=== PATIENT | female | born 1985 | race Caucasian/White ===

== ENCOUNTER 2016-04-21 05:14 | Emergency (ER) | payer OTHER ==
[~2016-04-21] VITALS: Wt 77.0 kg
[~2016-04-21 05:14] MED LIST: AZIT250T94 PO; LORA10TA3 PO; NITR-58 PO; OMEP20CA16 PO
[2016-04-21] MEDS ORDERED: AMO500 PO (07:11)
--- NOTE | 2016-04-21 07:16 | ERD ---
ER Documentation Chief Complaint Date/Time DATE: 04/21/16 TIME: 07:11 Chief Complaint bilateral ear pain/sore throat 4 days HPI Patient is a 31-year-old female with past medical history of asthma who presents to the emergency department with bilateral ear pain and throat pain 4 days. Patient states that initially she had right ear pain but it has now progressed into her left ear. Patient states that her left ear pain is throbbing and sharp in nature. Patient states her current pain level is a 6 out of 10. Patient has not tried any medication. Patient also reports a dry cough which is now improved. Patient states that her throat pain is worse when swallowing however she denies any drooling, trismus, hyperextension of her neck. She denies any fever, chills, abdominal pain, nausea, vomiting, shortness of breath or chest pain. Patient denies any wheezing. + sick contacts , children. No recent travel. ROS All systems reviewed and are negative except as per history of present illness. Medications Home Meds Active Scripts Amoxicillin* (Amoxicillin*) 500 Mg Cap, 500 MG PO TID for 7 Days, CAP Prov:MONY GERMAINC 04/21/16 Nitrofurantoin Monohyd Macrocr* (Macrobid*) 100 Mg Capsr, 100 MG PO BID for 7 Days, CAP Prov:KP IBARRA NP 07/17/15 Nitrofurantoin Monohyd Macrocr* (Macrobid*) 100 Mg Capsr, 100 MG PO BID, #14 CAP 0 Refills Prov:ALEXANDRU WATTERS PA-C 03/02/15 Azithromycin* (Zithromax*) 250 Mg Tablet, 250 MG PO .KanikaPACK DIRECTED, #6 TAB TAKE 500 MG (2 TABS) THE FIRST DAY THEN 250 MG (1 TAB) DAYS 2-5 Prov:BETY MARTINEZ PA-C 10/04/14 Reported Medications Loratadine* (Loratadine*) 10 Mg Tablet, 10 MG PO DAILY 08/03/13 Omeprazole* (Omeprazole*) 20 Mg Capsule.dr, 20 MG PO DAILY 08/03/13 Allergies Allergies: Coded Allergies: No Known Allergy (Unverified , 07/17/15) PMhx/Soc History of Surgery: Yes (cholecystectomy) Anesthesia Reaction: No Hx Neurological Disorder: No Hx Respiratory Disorders: Yes (ASTHMA) Hx Cardiac Disorders: No Hx Psychiatric Problems: No Hx Miscellaneous Medical Probl: Yes (GI: ULCER) Hx Alcohol Use: Yes (occassional) Hx Substance Use: No Hx Tobacco Use: No FmHx Family History: No diabetes Physical Exam Vitals Vital Signs Date Time Temp Pulse Resp B/P Pulse Ox O2 Delivery O2 Flow Rate FiO2 04/21/16 05:32 98.2 79 18 137/74 100 Physical Exam GENERAL: Well-developed, well-nourished female. Appears in no acute distress. HEAD: Normocephalic, atraumatic. No deformities or ecchymosis. EYE: Pupils equal, round, and reactive to light. EOMs intact. No conjunctival erythema. No scleral icterus. No eye discharge. ENT: External ear without any masses or tenderness. Auditory canals clear bilaterally. Left TM appears erythematous and bulging. Right TM appears nonerythematous and nonbulging. Nasal mucosa pink with no discharge. Oropharynx is pink without any tonsillar erythema or exudates. Mild tonsillar swelling noted bilaterally. No uvula deviation. No kissing tonsils. No Bilateral mastoid tenderness. NECK: Supple. No lymphadenopathy or thyromegaly. No meningismus. No JVD. No bruits. Trachea midline. LUNG: Clear to auscultation bilaterally. No rhonchi, wheezing, rales or coarse breath sounds. HEART: Regular rate and rhythm. No murmurs, rubs or gallops. ABDOMEN: Soft, nontender, and nondistended. Positive bowel sounds in all four quadrants. No rebound tenderness, no guarding. (-) McBurney's point tenderness. No CVA tenderness. : deferred BACK: No midline tenderness. EXTREMITES: Equal pulses bilaterally. No peripheral clubbing, cyanosis or edema. No unilateral leg swelling. NEUROLOGIC: Alert and oriented to person, place and time. Moving all four extremities. 5/5 strength in all extremities. Normal speech. Steady gait. (-) Brudzinski sign- no flexion of the hips and knees noted with neck flexion. (-) Kernigs sign- patient able to extend knee to 180 degrees with hip flexion, no hamstring stiffness noted. SKIN: Normal color. Warm and dry. No rashes or lesions. Procedures/MDM MEDICAL DECISION MAKING: Physical 31-year-old female who presents with bilateral ear pain and throat pain 4 days. She states that her pain is primarily in the left ear currently. Vital signs were reviewed. Patient was afebrile. Patient was not hypoxic. Ear exam revealed left TM erythema and bulging. Right TM appears normal. No bilateral mastoid tenderness was elicited. Given these findings, the patients presentation is most consistent with acute otitis media of left ear. I have a much lower clinical suspicion for otitis externa, acute otitis media, tympanic membrane perforation, mastoiditis, otic barotrauma, TMJ dysfunction, pharyngitis , peritonsillar abscess, retropharyngeal abscess, meningitis, sepsis, pneumonia. PRESCRIPTIONS: Amoxicillin Take Tylenol or Motrin for any pain or fevers. DISCHARGE: At this time, patient is stable for discharge and outpatient management. I have instructed the patient to follow-up with his/her primary care physician in 1-2 days. I have discussed with the patient the possibility of needing to see a specialist for further workup and diagnostic studies if the pain persists. I have instructed the patient to promptly return to the ER at any time for any new or worsening symptoms including increased pain, fever, swelling, discharge or hearing loss. The patient and/or family expressed understanding of and agreement with this plan. All questions were answered. Home care instructions were provided. Departure Diagnosis: Primary Impression: Acute otitis media Otitis media type: unspecified Laterality: unspecified laterality Qualified Code: H66.90 - Acute otitis media, unspecified laterality, unspecified otitis media type Condition: Stable Patient Instructions: Otitis Media, Abx Tx (Adult) Additional Instructions: Call your primary care doctor TOMORROW for an appointment during the next 1-2 days.See the doctor sooner or return here if your condition worsens before your appointment time. Take Tylenol or Motrin for pain/fevers. MONY GERMAIN PA-C Apr 21, 2016 07:15
== END 2016-04-21 07:19 | disposition home or self-care (01) ==
LOC: FTE 05:14
DX: H66.92 Otitis media, unspecified, left ear (principal); J45.909 Unspecified asthma, uncomplicated
CPT/HCPCS: 99283

== ENCOUNTER 2016-12-09 22:52 | Emergency (ER) | payer OTHER ==
[~2016-12-09] VITALS: Ht 152.4 cm; Wt 100.0 kg
[~2016-12-09 22:52] MED LIST changes: +AMO500 PO
[2016-12-09 22:56] VITALS: Ht 152.4 cm; Wt 100.0 kg
--- NOTE | 2016-12-10 01:15 | ERD ---
ER Documentation Chief Complaint Date/Time DATE: 12/10/16 TIME: 01:13 Chief Complaint 5 wks , vag bleeding . pelvic pain,vomiting HPI 31-year-old female presents in emergency department for complaints of pelvic pain and vomiting vaginal bleeding that started 2 days ago. Patient tested positive for at home, patient has not seen primary care doctor, patient has an IUD in place. Patient's complaining pelvic pain cramping pain, 6/ 10 scale, not better or worse with anything. Patient denies any fever or chills. States that she may be 5 weeks preg ROS All systems reviewed and are negative except as per history of present illness. Medications Home Meds Active Scripts Amoxicillin* (Amoxicillin*) 500 Mg Cap, 500 MG PO TID for 7 Days, CAP Prov:MONY GERMAIN PA-C 04/21/16 Nitrofurantoin Monohyd Macrocr* (Macrobid*) 100 Mg Capsr, 100 MG PO BID for 7 Days, CAP Prov:KP IBARRA NP 07/17/15 Nitrofurantoin Monohyd Macrocr* (Macrobid*) 100 Mg Capsr, 100 MG PO BID, #14 CAP 0 Refills Prov:ALEXANDRU WATTERS PA-C 03/02/15 Azithromycin* (Zithromax*) 250 Mg Tablet, 250 MG PO .ZPACK DIRECTED, #6 TAB TAKE 500 MG (2 TABS) THE FIRST DAY THEN 250 MG (1 TAB) DAYS 2-5 Prov:BETY MARTINEZ PA-C 10/04/14 Reported Medications Loratadine* (Loratadine*) 10 Mg Tablet, 10 MG PO DAILY 08/03/13 Omeprazole* (Omeprazole*) 20 Mg Capsule.dr, 20 MG PO DAILY 08/03/13 Allergies Allergies: Coded Allergies: No Known Allergy (Unverified , 07/17/15) PMhx/Soc History of Surgery: Yes (cholecystectomy) Anesthesia Reaction: No Hx Neurological Disorder: No Hx Respiratory Disorders: Yes (ASTHMA) Hx Cardiac Disorders: No Hx Psychiatric Problems: No Hx Miscellaneous Medical Probl: Yes (GI: ULCER) Hx Alcohol Use: Yes (occassional) Hx Substance Use: No Hx Tobacco Use: No Smoking Status: Never smoker FmHx Family History: No coronary disease, No diabetes, No other Physical Exam Vitals Vital Signs Date Time Temp Pulse Resp B/P Pulse Ox O2 Delivery O2 Flow Rate FiO2 12/09/16 22:56 98.6 94 20 152/81 97 Physical Exam GENERAL: The patient is well developed and appropriate for usual state of health, in no apparent distress. CHEST: Clear to auscultation bilaterally. There are no rales, wheezes or rhonchi. HEART: Regular rate and rhythm. No murmurs, clicks, rubs or gallops. No S3 or S4. ABDOMEN: Soft, nontender and nondistended. Good bowel sounds. No rebound or guarding. No gross peritonitis. No gross organomegaly or masses. No Leon sign or McBurney point tenderness. BACK: No midline or flank tenderness. EXTREMITIES: Equal pulses bilaterally. There is no peripheral clubbing, cyanosis or edema. No focal swelling or erythema. Full range of motion. Grossly neurovascularly intact. NEURO: Alert and oriented. Cranial nerves 2-12 intact. Motor strength in all 4 extremities with 5/5 strength. Sensation grossly intact. Normal speech and gait. SKIN: There is no apparent rash or petechia. The skin is warm and dry. HEMATOLOGIC AND LYMPHATIC: There is no evidence of excessive bruising or lymphedema. No gross cervical, axillary, or inguinal lymphadenopathy. VAGINAL: Moderate amount of blood in the vaginal vault, cervical os is closed. No cervical motion tenderness or tenderness noted. Result Diagram: 12/10/1699 Results 24 hrs Laboratory Tests Test 12/10/16 01:00 12/10/16 02:14 White Blood Count 8.310^3/ul Red Blood Count 4.5910^6/ul Hemoglobin 13.7g/dl Hematocrit 40.6% Mean Corpuscular Volume 88.5fl Mean Corpuscular Hemoglobin 29.8pg Mean Corpuscular Hemoglobin Concent 33.7g/dl Red Cell Distribution Width 13.2% Platelet Count 63201^3/UL Mean Platelet Volume 9.5fl Neutrophils % 62.6% Lymphocytes % 27.6% Monocytes % 7.1% Eosinophils % 1.7% Basophils % 0.5% Nucleated Red Blood Cells % 0.0/100WBC Neutrophils # (Manual) 5.210^3/ul Lymphocytes # 2.310^3/ul Monocytes # 0.610^3/ul Eosinophils # 0.110^3/ul Basophils # 0.010^3/ul Nucleated Red Blood Cells # 0.010^3/ul Beta HCG, Quantitative < 2.4mIU/ml Urine Color KRISTAL Urine Clarity CLOUDY Urine pH 6.0 Urine Specific [place] 1.031 Urine Ketones NEGATIVEmg/dL Urine Nitrite NEGATIVEmg/dL Urine Bilirubin NEGATIVEmg/dL Urine Urobilinogen NEGATIVEmg/dL Urine Leukocyte Esterase NEGATIVELeu/ul Urine Microscopic RBC > 182/HPF Urine Microscopic WBC 10/HPF Urine Squamous Epithelial Cells MODERATE/HPF Urine Bacteria FEW/HPF Urine Mucus FEW/HPF Urine Hemoglobin 3+mg/dL Urine Glucose 1+mg/dL Urine Total Protein 2+mg/dl PROCEDURE: Obstetrical ultrasound. CLINICAL INDICATION: Vaginal bleeding. TECHNIQUE: Multiple sonographic images of the pelvis were obtained utilizing a transabdominal and endovaginal technique. The images were reviewed on a PACS workstation. COMPARISON: 07/17/2015. FINDINGS: The uterus is visualized and measures 8.5 x 4.0 x 5.5 cm. No abnormal uterine mass is identified. The endometrial echo complex is homogeneous and measures 5.4 mm. No intrauterine is identified. There is an intrauterine device in place. There is no evidence for free fluid. The right ovary has a normal echotexture and measures 2.9 x 2.2 x 2.2 cm. The left ovary has a normal echotexture and measures 3.4 x 1.8 x 2.4 cm. There is normal flow to both ovaries. No adnexal masses are identified. IMPRESSION: No intrauterine identified. Clinical beta-hCG correlation and follow- up is recommended. Intrauterine device in place. .Mika Booth MD, Date Time Electronically viewed and signed by .Mika Booth MD, MD on 12/10/2016 01:21 .T/ CC: RAYMON MORA NP Procedures/MDM Medical Decision Making: Patients vaginal bleeding is most likely dysfunctional uterine bleeding from IUD, IUD is in place, no . Patient does not show any evidence of hypovolemic shock. Patients hemoglobin and hematocrit is stable. There is low suspicion for ectopic . BRENDAN results show IUD in place, no . BetaHCG Quantitative is negative for . There is no signs of symptoms of dehydration. There is low suspicion for sepsis. Patient appears well and is hemodynamically stable. Disposition: Home. Condition: Stable Rx Ibuprofen Instructions: Patient is advised to do bed rest, avoid heavy lifting, and avoid having sex until cleared by OB doctor. Patient is advised to follow up with OB doctor or here at the ER in 48 hours for reevaluation of symptoms ultrasound. Patient is advised that is symptoms are worst, severe bleeding, dizziness, severe abdominal pain, fever, worst signs and symptoms to return to the emergency department immediately. Departure Diagnosis: Primary Impression: Vaginal bleeding Additional Impression: IUD (intrauterine device) in place Condition: Stable Patient Instructions: Control: IUD (Intrauterine Device), Dysfunctional Uterine Bleeding Additional Instructions: Instructions: Patient is advised to do bed rest, avoid heavy lifting, and avoid having sex until cleared by OB doctor. Patient is advised to follow up with OB doctor or here at the ER in 48 hours for reevaluation of symptoms, repeat beta HCG quantitative and ultrasound. Patient is advised that is symptoms are worst, severe bleeding, dizziness, severe abdominal pain, fever, worst signs and symptoms to return to the emergency department immediately. RAYMON MORA NP Dec 10, 2016 01:15
--- NOTE | 2016-12-10 01:21 | RADRPT ---
PROCEDURE: Obstetrical ultrasound. CLINICAL INDICATION: Vaginal bleeding. TECHNIQUE: Multiple sonographic images of the pelvis were obtained utilizing a transabdominal and endovaginal technique. The images were reviewed on a PACS workstation. COMPARISON: 07/17/2015. FINDINGS: The uterus is visualized and measures 8.5 x 4.0 x 5.5 cm. No abnormal uterine mass is identified. T he endometrial echo complex is homogeneous and measures 5.4 mm. No intrauterine is identif ied. There is an intrauterine device in place. There is no evidence for free fluid. The right ovary has a normal echotexture and measures 2.9 x 2. 2 x 2.2 cm. The left ovary has a normal echotexture and measures 3.4 x 1.8 x 2.4 cm. There is norm al flow to both ovaries. No adnexal masses are identified. IMPRESSION: No intrauterine identified. Clinical beta-hCG correlation and follow-up is recommended. Intrauterine device in place. .Mika Booth MD, Date Time Electronically viewed and signed by .Mika Booth MD, MD on 12/10/2016 01:21 .T/
[2016-12-10 01:22] LABS: BASOPHILS % 0.5 % (0.0-2.0); EOSINOPHILS # 0.1 10^3/ul (0.0-0.5); EOSINOPHILS % 1.7 % (0.0-7.0); HEMATOCRIT 40.6 % (37.0-47.0); HEMOGLOBIN 13.7 g/dl (12.0-16.0); LYMPHOCYTES # 2.3 10^3/ul (0.8-2.9); LYMPHOCYTES % 27.6 % (15.0-51.0); MEAN CORPUSCULAR HEMOGLOBIN 29.8 pg (29.0-33.0); MEAN CORPUSCULAR HGB CONC 33.7 g/dl (32.0-37.0); MEAN CORPUSCULAR VOLUME 88.5 fl (82.0-101.0); MEAN PLATELET VOLUME 9.5 fl (7.4-10.4); MONOCYTE # 0.6 10^3/ul (0.3-0.9); MONOCYTES % 7.1 % (0.0-11.0); NEUTROPHILS % 62.6 % (39.0-77.0); PLATELET COUNT 289 10^3/UL (140-415); RED BLOOD COUNT 4.59 10^6/ul (4.20-5.40); RED CELL DISTRIBUTION WIDTH 13.2 % (11.5-14.5); WHITE BLOOD COUNT 8.3 10^3/ul (4.8-10.8)
[2016-12-10 03:57] LABS: ADD UMIC YES; UR ASCORBIC ACID NEGATIVE (NEGATIVE); UR BACTERIA FEW /HPF (NONE SEEN); UR BILIRUBIN (Dip) NEGATIVE (NEGATIVE); UR BLOOD (Dip) 3+ mg/dL (NEGATIVE); UR CLARITY CLOUDY (CLEAR); UR COLOR AMBER (YELLOW); UR GLUCOSE (Dip) 1+ mg/dL (NEGATIVE); UR KETONES (Dip) NEGATIVE (NEGATIVE); UR LEUKOCYTE ESTERASE (Dip) NEGATIVE Leu/ul (NEGATIVE); UR MUCUS FEW /HPF (NONE SEEN); UR NITRITE (Dip) NEGATIVE (NEGATIVE); UR RBC > 182 /HPF (0-5); UR SPECIFIC GRAVITY (Dip) 1.031 (1.003-1.030); UR SQUAMOUS EPITHELIAL CELL MODERATE /HPF (FEW); UR TOTAL PROTEIN (Dip) 2+ mg/dl (NEGATIVE); UR UROBILINOGEN (Dip) NEGATIVE (NEGATIVE)
[2016-12-10] MEDS ORDERED: IBUP-1542 PO (04:02)
[2016-12-10 04:07] LABS: UR AMORPHOUS CRYSTAL FEW /HPF (NONE SEEN)
[2016-12-10 04:29] VITALS: BP 128/66; PULSE 75; RESP 20; TEMP 98.6
== END 2016-12-10 04:30 | disposition home or self-care (01) ==
LOC: FTE 22:52
DX: O20.9 Hemorrhage in early pregnancy, unspecified (principal); O99.511 Diseases of the respiratory system complicating pregnancy, first trimester; J45.909 Unspecified asthma, uncomplicated; R10.2 Pelvic and perineal pain; Z3A.01 Less than 8 weeks gestation of pregnancy
CPT/HCPCS: 36415; 76801; 76817; 81001; 84702; 85025; 86900; 86901; Z7502

== ENCOUNTER 2018-04-09 14:44 | Emergency (ER) | payer OTHER ==
[~2018-04-09] VITALS: Ht 152.4 cm; Wt 100.8 kg
[~2018-04-09 14:44] MED LIST changes: -AMO500 PO; +AMOX500C2 PO; +AZIT250T PO; -AZIT250T94 PO; +IBUP-1542 PO
[2018-04-09 14:48] VITALS: Ht 152.4 cm; Wt 100.8 kg
[2018-04-09] MEDS ORDERED: ACETAMINOPHEN 325 MG TAB PO STA (16:02)
--- NOTE | 2018-04-09 17:20 | ERD ---
ER Documentation Chief Complaint Chief Complaint AP, L leg pain after 3-step fall yesterday, 15-wks HPI This is a 33-year-old female, who presents at roughly 15 weeks with complaints of mild diffuse abdominal pain after falling down 3 stairs yesterday. Patient states that when she fell she landed on bilateral knees and bilateral hands and she did not strike abdomen on the ground. Patient describes the abdominal pain as a soreness. Patient had no loss of consciousness with this event and did not strike head. Denies vaginal pain, vaginal bleeding, nausea, vomiting, diarrhea, constipation, melena, hematochezia, hemoptysis, headache, blurry vision, changes in vision, dizziness, lightheadedness and other symptoms. No known drug allergies. OB doctor is Dr. Ricki OCHOA All systems reviewed and are negative except as per history of present illness. Medications Home Meds Active Scripts Ibuprofen* (Motrin*) 600 Mg Tab, 600 MG PO Q6H PRN for PAIN AND OR ELEVATED TEMP, #30 TAB Prov:RAYMON MORA MEDIA ASSISTANT 12/10/16 Amoxicillin* (Amoxicillin*) 500 Mg Cap, 500 MG PO TID for 7 Days, CAP Prov:MONY GERMAINC 04/21/16 Nitrofurantoin Monohyd Macrocr* (Macrobid*) 100 Mg Capsr, 100 MG PO BID for 7 Days, CAP Prov:KP IBARRA MEDIA ASSISTANT 07/17/15 Nitrofurantoin Monohyd Macrocr* (Macrobid*) 100 Mg Capsr, 100 MG PO BID, #14 CAP 0 Refills Prov:ALEXANDRU WATTERSC 03/02/15 Azithromycin* (Zithromax*) 250 Mg Tablet, 250 MG PO .ZPACK DIRECTED, #6 TAB TAKE 500 MG (2 TABS) THE FIRST DAY THEN 250 MG (1 TAB) DAYS 2-5 Prov:BETY MARTINEZC 10/04/14 Reported Medications Loratadine* (Loratadine*) 10 Mg Tablet, 10 MG PO DAILY 08/03/13 Omeprazole* (Omeprazole*) 20 Mg Capsule.dr, 20 MG PO DAILY 08/03/13 Allergies Allergies: Coded Allergies: No Known Allergy (Unverified , 04/09/18) PMhx/Soc History of Surgery: Yes (cholecystectomy) Anesthesia Reaction: No Hx Neurological Disorder: No Hx Respiratory Disorders: Yes (ASTHMA) Hx Cardiac Disorders: No Hx Psychiatric Problems: No Hx Miscellaneous Medical Probl: Yes (GI: ULCER) Hx Alcohol Use: Yes (occassional) Hx Substance Use: No Hx Tobacco Use: No Smoking Status: Never smoker FmHx Family History: No diabetes Physical Exam Vitals Vital Signs Date Temp Pulse Resp B/P (MAP) Pulse Ox O2 O2 Flow FiO2 Time Delivery Rate 04/09/18 98.4 89 18 141/73 98 14:48 (95) Physical Exam Physical Exam Vitals signs: Reviewed by me. General: Well developed, well nourished, in no acute distress. Patient is awake and alert. Head: Normocephalic, atraumatic. Eyes: Normal conjunctiva, Pupils PERRLA, EOM intact grossly ENT: Pharynx is clear, Moist mucous membranes, external ears, nose and mouth normal Neck: Supple, no masses, lymphadenopathy or JVD Respiratory: Clear to auscultation bilaterally with no wheezing, rhonchi, rales, no distress Cardiovascular: RRR, no murmurs, rubs, or gallops Abdominal: Soft, protuberant, no peritoneal signs, no rigidity, no surgical abdomen, bowel sounds present all 4 quadrants, nontender light deep palpation all 4 quadrants, no rebound tenderness, McBurney's point nontender tender : Deferred MSK: No edema, no unilateral swelling, 5/5 strength Back: No midline tenderness. No flank tenderness Neurologic: Alert and oriented, moving all extremities, normal speech, no focal weakness, no cerebellar signs. Normal mentation Skin: warm and dry, No rash Psych: Normal mood Result Diagram: 04/09/18 1608 04/09/18 1608 Results 24 hrs Laboratory Tests Test 04/09/18 16:08 White Blood Count 8.2 10^3/ul Red Blood Count 4.22 10^6/ul Hemoglobin 12.7 g/dl Hematocrit 37.6 % Mean Corpuscular Volume 89.1 fl Mean Corpuscular Hemoglobin 30.1 pg Mean Corpuscular Hemoglobin Concent 33.8 g/dl Red Cell Distribution Width 13.1 % Platelet Count 265 10^3/UL Mean Platelet Volume 9.5 fl Immature Granulocytes % 0.400 % Neutrophils % 72.6 % Lymphocytes % 19.3 % Monocytes % 6.9 % Eosinophils % 0.6 % Basophils % 0.2 % Nucleated Red Blood Cells % 0.0 /100WBC Immature Granulocytes # 0.030 10^3/ul Neutrophils # 5.9 10^3/ul Lymphocytes # 1.6 10^3/ul Monocytes # 0.6 10^3/ul Eosinophils # 0.1 10^3/ul Basophils # 0.0 10^3/ul Nucleated Red Blood Cells # 0.0 10^3/ul Urine Color YELLOW Urine Clarity CLEAR Urine pH 6.0 Urine Specific [place] 1.027 Urine Ketones NEGATIVE mg/dL Urine Nitrite NEGATIVE mg/dL Urine Bilirubin NEGATIVE mg/dL Urine Urobilinogen NEGATIVE mg/dL Urine Leukocyte Esterase TRACE Miriam/ul Urine Microscopic RBC 2 /HPF Urine Microscopic WBC 2 /HPF Urine Squamous Epithelial Cells FEW /HPF Urine Mucus FEW /HPF Urine Hemoglobin NEGATIVE mg/dL Urine Glucose NEGATIVE mg/dL Urine Total Protein 1+ mg/dl Sodium Level 141 mmol/L Potassium Level 3.5 mmol/L Chloride Level 108 mmol/L Carbon Dioxide Level 22 mmol/L Anion Gap 11 Blood Urea Nitrogen 5 mg/dl Creatinine 0.39 mg/dl Est Glomerular Filtrat Rate mL/min > 60 mL/min Glucose Level 99 mg/dl Calcium Level 9.0 mg/dl Total Bilirubin 0.0 mg/dl Direct Bilirubin 0.00 mg/dl Indirect Bilirubin 0.0 mg/dl Aspartate Amino Transf (AST/SGOT) 18 IU/L Alanine Aminotransferase (ALT/SGPT) 34 IU/L Alkaline Phosphatase 60 IU/L Total Protein 6.3 g/dl Albumin 3.5 g/dl Globulin 2.80 g/dl Albumin/Globulin Ratio 1.25 Beta HCG, Quantitative 28919.0 mIU/ml Current Medications Medications Dose Sig/Gertrude Start Time Status Last (Trade) Ordered Route PRN Stop Time Admin Dose Reason Admin 650 mg ONCE STAT 04/09/18 DC 04/09/18 Acetaminophen PO 16:02 04/09/18 16:10 (Tylenol 16:05 Tab) Procedures/MDM EKG, MONITORS, & DIAGNOSTIC IMAGING: [place] [id number] Radiology Main Line: [phone] DIAGNOSTIC IMAGING REPORT Patient: GREG LOPEZ : 1985 Age: 33 Sex: F MR #: [id number] DOS: 04/09/18 1602 Ordering MD: CELSO STEELE PA-C Location: [facility] Room/Bed: PROCEDURE: US OB. CLINICAL INDICATION: Trauma due to a fall. Pelvic pain. . TECHNIQUE: Multiple sonographic images of the uterus were obtained. The images were reviewed on a PACS workstation. COMPARISON: No prior studies are available for comparison. FINDINGS: There is a single live intrauterine gestation. heart rate is 150 beats per minute. Measurements were made in order to determine age. The results are as follows: BPD = 3.00 cm. HC = 11.12 cm. AC = 9.00 cm. FL = 1.65 cm. Estimated weight is 115 +/- 17 grams. LMP growth percentile is 54 %. Menstrual age by ultrasound dates is 15 weeks 2 days. The estimated date of delivery is 09/29/2018. Cervical length is 3.8 cm. Maximum vertical pocket of amniotic fluid is 3.9 cm. Position is cephalic and placenta is posterior right grade 0. There is no evidence for an abruption or placenta previa. IMPRESSION: 1. Single live intrauterine gestation of 15 weeks 2 days gestational age by ultrasound dates. 2. The estimated date of delivery is 09/29/2018. RPTAT: QQ .Nahid Flores MD, Date Time Electronically viewed and signed by .Nahid Flores MD, MD on 04/09/2018 16:29 .R/ CC: CELSO SETELE PA-C [id number] LAB INTERPRETATION: CBC shows no evidence of hemorrhage or infection Chemistry shows no evidence of significant electrolyte abnormalities or renal insufficiency Liver function test shows no evidence of acute biliary or hepatic [place] H[place] [id number] Blood type A- ER COURSE: The patient was given tylenol The medication was well tolerated and the patient reports improvement in symptoms. The patient was stable throughout ED course. I kept the patient and/or family informed of laboratory and diagnostic imaging results throughout the emergency room course. The patient was promptly evaluated and a treatment plan was devised based on H&P and other data. This plan was discussed with the patient who agreed and had no further questions or concerns prior to discharge. MEDICAL DECISION MAKING: This is a 33-year-old female, who presents ED with abdominal pain status post ground-level fall yesterday at roughly 15 weeks . Patient tripped down 3 stairs and landed on bilateral knees and bilateral hands. Patient is complaining of some abdominal pain.. Ultrasound was ordered to rule out placenta previa, placental abruption, premature rupture of brains and to check heart tones fetus. Patient is blood type A(-), but denies any vaginal bleeding and does not require any RhoGam. Patient was advised to follow-up with her OB or return to the ER if she does experience vaginal bleeding as she will need a RhoGam shot. CBC is unremarkable with no signs of anemia or hemorrhage. Patient is hemodynamically stable. Urinalysis is unremarkable. Ultrasound shows a closed competent cervix with no appearance of previa or abruption. Ultrasound shows a single intrauterine gestation with a heart rate of 150 bpm. Advised patient follow-up with her [facility]IE[facility] OF [facility]ING specialist in the next 48 hours. At this time there is no [facility] OF [facility]ANNING or abdominal emergency emergency. No evidence of significant internal organ injury. Return to ED with any worsening symptoms. DISPOSITION PLAN: We discussed follow up with the patient's primary care doctor within 24 to 48 hours. Patient counseled regarding my diagnostic impression and care plan. Prior to discharge all questions answered. Pt agrees with treatment plan and understands strict return precautions. Precautionary instructions provided including instructions to return to the ER if not improving or for any worsening or changing symptoms or concerns. SPECIALIST FOLLOW UP RECOMMENDED: OB Patient has been advised to follow up with primary care in 1-2 days. Disclaimer: Inadvertent spelling and grammatical errors are likely due to EHR/dictation software use and do not reflect on the overall quality of patient care. Also, please note that the electronic time recorded on this note does not necessarily reflect the actual time of the patient encounter. Departure Diagnosis: Primary Impression: Abdominal pain during in second trimester Additional Impression: Fall (on) (from) other stairs and steps, initial encounter Condition: Stable Patient Instructions: Adapting to : Second Trimester Referrals: [facility], [facility] REFERRAL LIST Additional Instructions: Patient advised to follow-up with her OB gynecologic specialist in the next 48 hours. Patient was given copies of all imaging and lab work done the emergency department today. Patient advised to return to the ED immediately for new or worsening symptoms. Patient advised to follow up with primary care provider in the next 24-48 hours. Patient verbalized understanding and agrees with treatment plan and course of action. If patient has no primary care they may follow up with one of the community clinics listed on the following page or one of the options listed below [facility] + [facility] [address] [place] [id number] or [facility] [address] [place] [address] or [facility] [address] [place] [address] CELSO STEELE PA-C Apr 09, 2018 17:20
[2018-04-09 18:17] VITALS: BP 119/65; PULSE 76; RESP 19
== END 2018-04-09 19:21 | disposition home or self-care (01) ==
LOC: FTE 14:44
DX: O26.892 Other specified pregnancy related conditions, second trimester (principal); R10.9 Unspecified abdominal pain; O99.512 Diseases of the respiratory system complicating pregnancy, second trimester; J45.909 Unspecified asthma, uncomplicated; R10.2 Pelvic and perineal pain; Z3A.15 15 weeks gestation of pregnancy
CPT/HCPCS: 36415; 76805; 80053; 81001; 84702; 85025; 86900; 86901; 87086; Z7502; Z7610

== ENCOUNTER 2018-07-12 21:51 | Emergency (ER) | payer OTHER ==
[~2018-07-12] VITALS: Ht 157.5 cm; Wt 105.7 kg
[2018-07-12 21:52] VITALS: Ht 157.5 cm; Wt 105.7 kg
[2018-07-12] MEDS ORDERED: ALBUTEROL 0.5% (NEB) 2.5 MG/0.5 ML AMP NEB STA (22:12)
--- NOTE | 2018-07-12 22:37 | ERD ---
ER Documentation Chief Complaint Chief Complaint 28WKS PREG; ASTHMA AND COUGH, CWP DUE TO COUGH, SOB; STARTED 2HRS AGO HPI 33-year-old female 28 weeks presenting with cough and shortness of breath with chest discomfort that started today. She states that she has been suffering from allergy symptoms with nasal congestion and watery eyes for the past 1 week. Today she started coughing. She was unable to find her inhaler. She does have a history of asthma that is not severe. Denies any fevers or chills. No hemoptysis or sputum production. Allergy medications are not helping. ROS All systems reviewed and are negative except as per history of present illness. Medications Home Meds Active Scripts Oseltamivir Phosphate* (Tamiflu*) 75 Mg Capsule, 75 MG PO BID for 5 Days, CAP Prov:MIKE JEFFRIES 07/12/18 Cetirizine Hcl* (Zyrtec*) 10 Mg Capsule, 10 MG PO DAILY, #20 TAB Prov:WILFRED HIDALGO MD 07/12/18 Albuterol Sulfate* (Ventolin HFA*) 18 Gm Hfa.aer.ad, 2 PUFF INHALATION Q4H PRN for WHEEZING, #1 INHALER Prov:WILFRED HIDALGO MD 07/12/18 Ibuprofen* (Motrin*) 600 Mg Tab, 600 MG PO Q6H PRN for PAIN AND OR ELEVATED TEMP, #30 TAB Prov:RAYMON MORA NP 12/10/16 Amoxicillin* (Amoxicillin*) 500 Mg Cap, 500 MG PO TID for 7 Days, CAP Prov:MONY GERMAINC 04/21/16 Nitrofurantoin Monohyd Macrocr* (Macrobid*) 100 Mg Capsr, 100 MG PO BID for 7 Days, CAP Prov:KP IBARRA ROLLER STAKER 07/17/15 Nitrofurantoin Monohyd Macrocr* (Macrobid*) 100 Mg Capsr, 100 MG PO BID, #14 CAP 0 Refills Prov:ALEXANDRU WATTERS PAMichaelC 03/02/15 Azithromycin* (Zithromax*) 250 Mg Tablet, 250 MG PO .ZPACK DIRECTED, #6 TAB TAKE 500 MG (2 TABS) THE FIRST DAY THEN 250 MG (1 TAB) DAYS 2-5 Prov:BETY MARTINEZ PA-C 10/04/14 Reported Medications Loratadine* (Loratadine*) 10 Mg Tablet, 10 MG PO DAILY 08/03/13 Omeprazole* (Omeprazole*) 20 Mg Capsule.dr, 20 MG PO DAILY 08/03/13 Allergies Allergies: Coded Allergies: No Known Allergy (Unverified , 04/09/18) PMhx/Soc History of Surgery: Yes (cholecystectomy) Anesthesia Reaction: No Hx Neurological Disorder: Yes (2 "MINI STROKES") Hx Respiratory Disorders: Yes (ASTHMA) Hx Cardiac Disorders: No Hx Psychiatric Problems: No Hx Miscellaneous Medical Probl: Yes (GI: ULCER) Hx Alcohol Use: Yes (occassional) Hx Substance Use: No Hx Tobacco Use: No Smoking Status: Never smoker FmHx Family History: No diabetes Physical Exam Vitals Vital Signs Date Temp Pulse Resp B/P (MAP) Pulse Ox O2 O2 Flow FiO2 Time Delivery Rate 07/13/18 98.8 89 14 95/56 (69) 98 Room Air 03:04 07/13/18 99.1 95 18 94/52 (66) 98 Room Air 02:44 07/13/18 109 12 124/67 98 Room Air 00:13 (86) 07/12/18 99.3 23:33 07/12/18 99.3 117 23 119/72 100 23:15 (88) 07/12/18 114 22 97 21 22:45 07/12/18 100.4 117 19 152/72 98 21:52 (98) Physical Exam Const: No acute distress. Speaking in full sentences Head: Atraumatic Eyes: Normal Conjunctiva ENT: Normal External Ears, Nose and Mouth. Neck: Full range of motion. No meningismus. Resp: Good air movement bilaterally with expiratory wheezing. No rales or rhonchi Cardio: Tachycardic with regular rhythm, no murmurs Abd: Soft, non tender, non distended. Normal bowel sounds Skin: No petechiae or rashes Back: No midline or flank tenderness Ext: No cyanosis, or edema Neur: Awake and alert Psych: Normal Mood and Affect Results 24 hrs Laboratory Tests Test 07/13/18 09:20 Lab Scanned Report BLOOD TRANSFUSION Current Medications Medications Dose Sig/Gertrude Start Time Status Last (Trade) Ordered Route PRN Stop Time Admin Dose Reason Admin Albuterol 10 mg ONCE STAT 07/12/18 DC 07/12/18 (Proventil NEB 22:12 07/12/18 22:45 0.5% (Neb)) 22:13 2 spray ONCE ONCE 07/12/18 DC 07/12/18 Phenylephrine NASAL 23:30 07/12/18 23:38 HCl 23:31 (Kike-Synephri ne 1% Eckert) 1,000 mg ONCE STAT 07/12/18 DC 07/12/18 Acetaminophen PO 23:29 07/12/18 23:33 (Tylenol 23:30 Tab) Procedures/MDM EMERGENT LABS AND DIAGNOSTIC STUDIES: Lab Results above were reviewed and interpreted by me. Influenza pending 12-lead EKG was interpreted by Oksana Hidalgo MD: Sinus tachycardia Normal axis Normal intervals No acute ST or T wave changes suggestive of acute ischemia or STEMI. Initial Nursing notes reviewed. Previous Medical Records requested via the Electronic Health Record. EMERGENCY DEPARTMENT COURSE / MEDICAL DECISION MAKING: Patient presents with congestion and cough. Vitals were notable for low grade fever and tachycardia. She was treated with a breathing treatment and phenylephrine nasal spray with improvement of her symptoms. Suspect possible URI. Doubt pneumonia, PE, ACS. Rx for zyrtec and albuterol written. At the end of my shift, flu results were still pending. Patient signed out to oncoming ED physician pending flu test results. Departure Diagnosis: Primary Impression: Shortness of breath Additional Impressions: Acute rhinosinusitis Asthma exacerbation Asthma severity: mild Asthma persistence: unspecified Qualified Codes: J45.901 - Unspecified asthma with (acute) exacerbation WILFRED HIDALGO MD Jul 12, 2018 22:37
[2018-07-12] MEDS ORDERED: ACETAMINOPHEN 500 MG TAB PO STA (23:29)
[2018-07-12] MEDS ORDERED: PHENYLephrine 1% 15 ML NAS SPRAY NASAL ONE (23:30)
[2018-07-12] MEDS ORDERED: CETI10CA PO (23:48)
[2018-07-12] MEDS ORDERED: ALBU18HF INHALATION (23:48)
[2018-07-12] MEDS ORDERED: OSEL75CA23 PO (23:59)
[2018-07-13 03:04] VITALS: BP 95/56; PULSE 89; RESP 14
== END 2018-07-13 03:00 | disposition home or self-care (01) ==
LOC: E/R 21:51
DX: O99.512 Diseases of the respiratory system complicating pregnancy, second trimester (principal); J45.901 Unspecified asthma with (acute) exacerbation; J01.90 Acute sinusitis, unspecified; R05 Cough; R07.89 Other chest pain; Z3A.28 28 weeks gestation of pregnancy
CPT/HCPCS: 86900; 86901; 87400; 93005; 94644; J2790; Z7502; Z7610

== ENCOUNTER 2018-09-02 09:00 | Outpatient (CLI) | payer OTHER ==
[~2018-09-02] VITALS: Ht 152.4 cm; Wt 110.4 kg
[~2018-09-02 09:00] MED LIST changes: +ALBU18HF INHALATION; +CETI10CA PO; +OSEL75CA23 PO
[2018-09-02] MEDS ORDERED: PREN-93 PO (09:17)
[2018-09-02 09:18] VITALS: Ht 152.4 cm; Wt 110.4 kg
[2018-09-02 09:19] VITALS: BP 113/65; PULSE 89
[2018-09-02] MEDS ORDERED: LACTATED RINGER'S 1,000 ML IV SCH (10:28)
[2018-09-02] MEDS ORDERED: LIDOCAINE 1% (MPF) 30 ML INJ INJ PRN (10:30)
[2018-09-02] MEDS ORDERED: METHYLERGONOVINE 0.2 MG INJ IM PRN (10:30)
[2018-09-02] MEDS ORDERED: OXYTOCIN 30 UNITS/LR 500 ML IV SCH ×2 (10:30)
[2018-09-02] MEDS ORDERED: CARBOPROST 250 MCG INJ IM PRN (10:30)
[2018-09-02] MEDS ORDERED: MISOPROSTOL 200 MCG TAB PR PRN (10:30)
[2018-09-02] MEDS ORDERED: OXYTOCIN 30 UNITS/LR 500 ML IV PRN (10:30)
[2018-09-02] MEDS ORDERED: IBUPROFEN 600 MG TAB PO PRN (10:30)
[2018-09-02] MEDS ORDERED: BUTORPHANOL 2 MG INJ IV PRN (10:30)
[2018-09-02] MEDS ORDERED: BETAMET NA PHOS/AC(6 MG/ML) 2 ML INJ SYG IM SCH (11:30)
--- NOTE | 2018-09-04 02:18 | HP ---
Date/Time of Note Date/Time of Note DATE: 09/04/18 TIME: 02:09 OB - History Hx of Present Free Text/Dictation late entry for 09/02/18 serice 33y.o at 35w5d with c/o leaking fluid with no uc's VE 1-2/50/-2 ROM plus pos JOHNSON 6.6 EFW 2575gms admitted for induction of labor after BMZ and ampicillin and zithromax. Chief Complaint: leaking fluid Estimated Due Date: Oct 02, 2018 : 5 Para: 2 Spontaneous : 2 Therapeutic : 0 Care: Good Care Ultrasounds: Normal mid trimester US Obstetrical Complications: None Medical Complications: Respiratory (asthma) Past Family/Social History * Past Medical, Surgical, Family and Obstetric Histories reviewed from chart. Blood Type: A- Rubella: immune RPR/VDRL: Negative GBS Status: Negative HBsAG: Negative OB Admission Exam Vital Signs Vital Signs Vital Signs Date Temp Pulse Resp B/P (MAP) Pulse Ox O2 O2 Flow FiO2 Time Delivery Rate 09/02/18 98.8 89 113/65 94 Room Air 09:19 (81) Physical Exam Cervical Dilatation: 1cm Effacement: 50% Station: -2 Membranes: Ruptured Amniotic Fluid: Clear Heart Rate: 140's Accelerations: Accelerations Present Decelerations: No Decelerations Varibility: Moderate Contractions on Admission: None OB Assessment/Plan Reason for admission: rupture of membranes Other Assessment: IUP 35w5d PPROM Plan: Induction ([id number] and ampicillin and zithromax) RICHARD SOTO MD September 04, 2018 02:18
--- NOTE | 2018-09-04 02:19 | QN ---
Documentation Comment patient left AMA since she has somthing to do RICHARD SOTO MD September 04, 2018 02:19
== END 2018-09-02 10:55 | disposition left against medical advice (07) ==
LOC: OBT 09:00 → L-D 09:02 → OBT 10:24 → L-D 10:33 → UNDOADMIN 10:33 → OBT 10:55
PROVIDERS: ATTEND Obstetrics & Gynecology
DX: O41.93X0 Disorder of amniotic fluid and membranes, unspecified, third trimester, not applicable or unspecified (principal); Z3A.35 35 weeks gestation of pregnancy
CPT/HCPCS: 76815; 76818; 84112; J7120; Z7500; G0463; J0702

== ENCOUNTER 2018-09-02 14:12 | Inpatient (IN) | payer OTHER ==
[~2018-09-02] VITALS: Ht 152.4 cm; Wt 110.4 kg
[~2018-09-02 14:12] MED LIST changes: +PREN-93 PO
--- NOTE | 2018-09-02 14:32 | TRIAGE ---
OB Triage Datetime Report Generated by CPN: 09/02/2018 14:32 Datetime: 09/02/2018 14:26 Labor Evaluation Monitor Mode: External Heart Rate Monitor Mode: External US Datetime: 09/02/2018 10:24 Membrane Status: Ruptured Datetime: 09/02/2018 09:24 Vaginal Exam Dilatation (cms): 1.5 Effacement (%): 50 Station: -2 Exam By: RISHI Vaginal Bleeding: None Pool: Negative Nitrazine: Negative Cervix, Consistency: Moderate Cervix, Position: Midposition Datetime: 09/02/2018 09:15 Assessment Type: Triage Maternal Assessment Level of Consciousness: Fully Conscious DTR's/Clonus: DTRs 2+; No Clonus Headache: Denies Blurred Vision: No Respiratory Effort: Unlabored; Regular Rhythm; Equal Expansion Breath Sounds, Left: Clear and Equal Breath Sounds, Right: Clear and Equal Nausea/Vomiting: Denies RUQ Epigastric Pain: Denies Lower Extremities Edema: None Degree: None Upper Extremities Edema: None Degree: None Facial Edema: None Fall Risk Assessment History of Falling: (0) No Secondary Diagnosis: (0) No Ambulatory Aid: (0) Bedrest/Nurse Assist IV Therapy: (0) No Gait: (0) Normal/Bedrest/Immobile Mental Status: (0) Oriented to Own Ability Fall Score: 0 Fall Risk Score Definition: No Risk: No action required Datetime: 09/02/2018 09:13 Time of Arrival: 09/02/2018 08:56 EGA: 35.5 Arrived By: Ambulatory Arrived From: Home Chief Complaint: PT. HERE C/O LEAKING X 1 OCCURENCE THIS AM Movement: Present Contractions: Denies/Absent Rupture of Membranes: Unsure Vaginal Discharge: Denies Recent Sexual Intercouse: Denies Abdominal Trauma: Not Applicable Patient Complaints: None Time Provider Notified: 09/02/2018 09:30 Provider Notified: KARIN Initial Plan: EFW/BPP/NST/ROM PLUS/ Datetime: 09/02/2018 09:09 Labor Evaluation Monitor Mode: External Heart Rate Monitor Mode: External US
[2018-09-02 14:35] VITALS: BP 120/68; PULSE 90; RESP 18
[2018-09-02 14:36] VITALS: Ht 152.4 cm; Wt 110.4 kg
[2018-09-02] MEDS ORDERED: IBUPROFEN 600 MG TAB PO PRN (15:00)
[2018-09-02] MEDS ORDERED: CARBOPROST 250 MCG INJ IM PRN (15:00)
[2018-09-02] MEDS ORDERED: BUTORPHANOL 2 MG INJ IV PRN (15:00)
[2018-09-02] MEDS ORDERED: METHYLERGONOVINE 0.2 MG INJ IM PRN (15:00)
[2018-09-02] MEDS ORDERED: OXYTOCIN 30 UNITS/LR 500 ML IV SCH ×2 (15:00)
[2018-09-02] MEDS ORDERED: OXYTOCIN 30 UNITS/LR 500 ML IV PRN (15:00)
[2018-09-02] MEDS ORDERED: MISOPROSTOL 200 MCG TAB PR PRN (15:00)
[2018-09-02] MEDS ORDERED: LIDOCAINE 1% (MPF) 30 ML INJ INJ PRN (15:00)
[2018-09-02] MEDS: LACTATED RINGER'S 1,000 ML IV SCH (16:42)
[2018-09-02] MEDS: BETAMET NA PHOS/AC(6 MG/ML) 2 ML INJ SYG IM SCH (17:06)
[2018-09-02] MEDS ORDERED: AMPICILLIN 2 GM/NS (PMX) 100 ML ONE (19:59)
[2018-09-02] MEDS ORDERED: AMPICILLIN 2 GM/NS (PMX) 100 ML IV ONE (20:00)
[2018-09-02] MEDS ORDERED: AZITHROMYCIN 500MG/NS (PMX) 250 ML IVPB ONE (21:00)
[2018-09-03] MEDS: AMPICILLIN 1 GM/NS (PMX) 50 ML IV SCH ×6 (00:19→21:15)
[2018-09-03] MEDS: LACTATED RINGER'S 1,000 ML IV SCH ×4 (00:48→22:09)
--- NOTE | 2018-09-03 01:37 | PREAC ---
Date/Time of Note Date/Time of Note DATE: 09/03/18 TIME: 01:36 Anesthesia Eval and Record Evaluation Time Pre-Procedure Interview DATE: 09/03/18 TIME: 01:36 Age 33 Sex female NPO: 8 hrs Preoperative diagnosis intrauterine Planned procedure labor epidural Past Medical History Past Medical History: Includes Pulm: Asthma : Gestational age: Surgery & Anesthesia Issues No known issue Meds Anticoagulation: No Beta Adrian within 24 hr: No Reason Beta Adrian not given: Pt. not on B-Adrian Active Scripts Albuterol Sulfate* (Ventolin HFA*) 18 Gm Hfa.aer.ad, 2 PUFF INHALATION Q4H PRN for WHEEZING, #1 INHALER Prov:WILFRED VELA MD 07/12/18 Reported Medications Vit No.124/Iron/FA ( Vitamin Tablet) 1 Each Tablet, 1 EACH PO DAILY, TAB 09/02/18 Discontinued Reported Medications Loratadine* (Loratadine*) 10 Mg Tablet, 10 MG PO DAILY 08/03/13 Omeprazole* (Omeprazole*) 20 Mg Capsule.dr, 20 MG PO DAILY 08/03/13 Discontinued Scripts Oseltamivir Phosphate* (Tamiflu*) 75 Mg Capsule, 75 MG PO BID for 5 Days, CAP Prov:MIKE JEFFRIES 07/12/18 Cetirizine Hcl* (Zyrtec*) 10 Mg Capsule, 10 MG PO DAILY, #20 TAB Prov:WILFRED VELA MD 07/12/18 Ibuprofen* (Motrin*) 600 Mg Tab, 600 MG PO Q6H PRN for PAIN AND OR ELEVATED TEMP, #30 TAB Prov:RAYMON MORA SUPERVISOR [employer] 12/10/16 Amoxicillin* (Amoxicillin*) 500 Mg Cap, 500 MG PO TID for 7 Days, CAP Prov:MONY GERMAIN PA-C 04/21/16 Nitrofurantoin Monohyd Macrocr* (Macrobid*) 100 Mg Capsr, 100 MG PO BID for 7 Days, CAP Prov:KP IBARRA NP 07/17/15 Nitrofurantoin Monohyd Macrocr* (Macrobid*) 100 Mg Capsr, 100 MG PO BID, #14 CAP 0 Refills Prov:ALEXANDRU WATTERS PA-C 03/02/15 Azithromycin* (Zithromax*) 250 Mg Tablet, 250 MG PO .KanikaPACK DIRECTED, #6 TAB TAKE 500 MG (2 TABS) THE FIRST DAY THEN 250 MG (1 TAB) DAYS 2-5 Prov:BETY MARTINEZ PA-C 10/04/14 Current Medications Lactated Ringer's 1,000 ml @ 125 mls/hr Q8H IV Last administered on 09/03/18at 00:48; Admin Dose 125 MLS/HR; Start 09/02/18 at 14:44 Butorphanol Tartrate (Stadol) 2 mg Q2H PRN IV .PAIN SCALE 6-10; Start 09/02/18 at 15:00 Lidocaine (Xylocaine 1% (Mpf)) 30 ml ONCE PRN INJ .EPISIOTOMY; Start 09/02/18 at 15:00 Oxytocin/Lactated Ringer's 500 ml @ 500 mls/hr ONCE POST IV ; Start 09/02/18 at 15:00 Oxytocin/Lactated Ringer's 500 ml @ 125 mls/hr POST IV ; Start 09/02/18 at 15:00 Ibuprofen (Motrin) 600 mg ONCE PRN PO .PAIN 1-5; Start 09/02/18 at 15:00 Oxytocin/Lactated Ringer's 500 ml @ 0 mls/hr ONCE PRN IV .VAGINAL BLEEDING; Start 09/02/18 at 15:00 Methylergonovine Maleate (Methergine) 0.2 mg ONCE PRN IM .VAGINAL BLEEDING; Start 09/02/18 at 15:00 Carboprost Tromethamine (Hemabate) 250 mcg ONCE PRN IM .VAGINAL BLEEDING; Start 09/02/18 at 15:00 Misoprostol (Cytotec) 1,000 mcg ONCE PRN SC .VAGINAL BLEEDING; Start 09/02/18 at 15:00 Betamethasone Acet/Betameth SodPhos (Celestone Soluspan) 12 mg Q12H IM Last administered on 09/02/18at 17:06; Admin Dose 12 MG; Start 09/02/18 at 16:00 Ampicillin 50 ml @ 100 mls/hr Q4H IV Last administered on 09/03/18at 00:19; Admin Dose 100 MLS/HR; Start 09/03/18 at 00:00 Azithromycin 250 mg/Sodium Chloride 250 ml @ 250 mls/hr Q24H IVPB ; Start 09/03/18 at 21:00 Meds reviewed: Yes Allergies Coded Allergies: No Known Allergy (Unverified , 04/09/18) Allergies Reviewed: Yes Labs/Studies Labs Reviewed: Reviewed by anesthesiologist Result Diagram: 09/02/18 1540 Laboratory Tests 09/02/18 15:40 Blood Bank Test 09/02/18 15:40 Antibody Identification Completed Antibody Screen POSITIVE Blood Type A NEGATIVE Rh Immune Globulin Candidate NO test: N/A Pre-procedure Exam Last vitals Vital Signs Date Temp Pulse Resp B/P (MAP) Pulse Ox O2 O2 Flow FiO2 Time Delivery Rate 09/02/18 98.6 90 18 120/68 Room Air 14:35 (85) Airway: Adequate mouth opening, Adequate thyromental dist Mallampati: Mallampati II Teeth: Normal Lung: Normal Heart: Normal ASA Physical Status ASA physical status: 2 Emergency: None Planned Anesthetic Neuraxial: Epidural Planned Pain Management Epidural, Parenteral pain med Pre-operative Attestations Prior to commencing anesthesia and surgery, the patient was re-evaluated, there was verification of: *The patient's identity *The results of appropriate recent lab work and preoperative vital signs *The above evaluation not changing prior to induction *Anesthetic plan, risk benefits, alternative and complications discussed with patient/family; questions answered; patient/family understands, accepts and wishes to proceed. CHATO LARA MD September 03, 2018 01:37
[2018-09-03] MEDS ORDERED: FENTAnyl 2MCG/ML-ROPIV 0.2% 100 ML ONE (01:42)
[2018-09-03] MEDS ORDERED: ONDANSETRON 4 MG INJ IV PRN (02:00)
[2018-09-03] MEDS ORDERED: NALOXONE (0.4 MG/ML) INJ IV PRN (02:00)
[2018-09-03] MEDS ORDERED: DIPHENHYDRAMINE 50 MG INJ IV PRN (02:00)
--- NOTE | 2018-09-03 02:20 | PAC ---
Date/Time of Note Date/Time of Note DATE: 09/03/18 TIME: 02:20 Post-Anesthesia Notes Post-Anesthesia Note Last documented vital signs Vital Signs Date Temp Pulse Resp B/P (MAP) Pulse Ox O2 O2 Flow FiO2 Time Delivery Rate 09/02/18 98.6 90 18 120/68 Room Air 14:35 (85) Activity: WNL Respiratory function: WNL Cardiovascular function: WNL Mental status: Baseline Pain reasonably controlled: Yes Hydration appropriate: Yes Nausea/Vomiting absent: Yes Comments BP: 105/62 HR: 78 RR: 16 T: 98 SaO2: 100% CHATO LARA MD September 03, 2018 02:20
[2018-09-03] MEDS: FENTAnyl 2MCG/ML-ROPIV 0.2% 100 ML BAG EPI SCH ×3 (02:44→17:33)
[2018-09-03] MEDS ORDERED: ALBUTEROL HFA 8 GM INHALER INH PRN (03:00)
[2018-09-03] MEDS: BETAMET NA PHOS/AC(6 MG/ML) 2 ML INJ SYG IM SCH (05:06)
[2018-09-03] MEDS ORDERED: AZITHROMYCIN 250 MG in SOD CHLORIDE 0.9% 250 ML IVPB SCH (21:00)
[2018-09-03] MEDS ORDERED: ACETAMINOPHEN 500 MG TAB PO ONE (21:42)
[2018-09-03] MEDS ORDERED: OXYTOCIN 30 UNITS/LR 500 ML IV SCH (22:00)
[2018-09-04] MEDS: FENTAnyl 2MCG/ML-ROPIV 0.2% 100 ML BAG EPI SCH (00:51)
[2018-09-04] MEDS ORDERED: MINERAL OIL LIGHT 10 ML VIAL TOP ONE (01:30)
--- NOTE | 2018-09-04 02:29 | HP ---
Date/Time of Note Date/Time of Note DATE: 09/04/18 TIME: 02:20 OB - History Hx of Present Free Text/Dictation late entry for service rendered on 09/02/18 33 y.o A2 who was admitted earlier ,left AMA and came back for IOL histoty as note written earlier admitted for IOL after BMZ and antibiotics as planned. Chief Complaint: leaking fluid Estimated Due Date: Oct 02, 2018 : 5 Para: 2 Spontaneous : 2 Therapeutic : 0 Care: Good Care Ultrasounds: Normal mid trimester US Obstetrical Complications: None Medical Complications: Respiratory (asthma) Past Family/Social History * Past Medical, Surgical, Family and Obstetric Histories reviewed from chart. Blood Type: A- Rubella: immune RPR/VDRL: Negative GBS Status: Negative HBsAG: Negative OB Admission Exam Vital Signs Vital Signs Vital Signs Date Temp Pulse Resp B/P (MAP) Pulse Ox O2 O2 Flow FiO2 Time Delivery Rate 09/02/18 98.6 90 18 120/68 Room Air 14:35 (85) Physical Exam HEENT: WNL Heart: Rhythm Normal Lungs: Clear, Equal Abdomen: WNL Extremities: Normal Reflexes: Normal Cervical Dilatation: 1cm Effacement: 50% Station: -2 Membranes: Ruptured Amniotic Fluid: Clear Heart Rate: 140's Accelerations: Accelerations Present Decelerations: No Decelerations Varibility: Moderate Contractions on Admission: None Last 72 hours Lab Results CBC & BMP 09/02/18 15:40 OB Assessment/Plan Reason for admission: rupture of membranes Other Assessment: IUP 35w5d PPROM Plan: Induction, Other (BMZ and ampiclllin and zithromax) RICHARD SOTO MD September 04, 2018 02:29
--- NOTE | 2018-09-04 02:37 | LDN ---
Date/Time of Note Date/Time of Note DATE: 09/04/18 TIME: 02:35 Delivery Summary of normal male Weeks of Gestation 36w Placenta Delivered: Spontaneously, Intact & Complete Meconium: none Episiotomy: No Perineal laceration: 0 Anesthesia type: Epidural Estimated blood loss: 100 Sponge & Needle done & correct: Yes All needle counts correct: Yes Any foreign bodies felt in the: No Delivery Information Sex Infant Sex: male Apgars 1 Minute: 9 5 Minute: 9 Suctioning Nose & mouth suctioned at yoseph: Yes Delee suction performed: Yes Umbilical Cord Umbilical cord with: 3 Vessels Cord presentations: no nuchal cord Cord Blood was obtained: Yes Mother & Baby Disposition Disposition Mom & Baby to Maternity; Good: Yes Mom transferred to: Other Baby to NICU: No () RICHARD SOTO MD September 04, 2018 02:37
[2018-09-04 03:10] VITALS: BP 104/60; PULSE 73; RESP 20
[2018-09-04] MEDS ORDERED: LANOLIN HPA 1 PKT TOP PRN (03:30)
[2018-09-04] MEDS ORDERED: CARBOPROST 250 MCG INJ IM PRN (03:30)
[2018-09-04] MEDS ORDERED: WITCH HAZEL/GLYCERIN PAD PR PRN (03:30)
[2018-09-04] MEDS ORDERED: OXYTOCIN 30 UNITS/LR 500 ML IV PRN (03:30)
[2018-09-04] MEDS ORDERED: OXYCODONE/ASPIRIN (4.88/325) TAB PO PRN ×2 (03:30)
[2018-09-04] MEDS ORDERED: MISOPROSTOL 200 MCG TAB PR PRN (03:30)
[2018-09-04] MEDS ORDERED: BENZOCAINE 20% 56 ML SPRAY TOP PRN (03:30)
[2018-09-04] MEDS ORDERED: METHYLERGONOVINE 0.2 MG INJ IM PRN (03:30)
[2018-09-04] MEDS ORDERED: ZOLPIDEM 5 MG TAB PO PRN (03:30)
[2018-09-04] MEDS: IBUPROFEN 600 MG TAB PO SCH ×4 (05:33→23:47)
[2018-09-04] MEDS: LACTATED RINGER'S 1,000 ML IV SCH ×2 (06:52→14:30)
[2018-09-04 08:45] VITALS: BP 110/65; PULSE 76; RESP 20
[2018-09-04] MEDS: SENNA/DOCUSATE NA (8.6MG/50MG) TAB PO SCH ×2 (09:00→20:59)
[2018-09-04 16:57] VITALS: BP 93/57; PULSE 64; RESP 18
[2018-09-04 19:50] VITALS: BP 104/57; PULSE 68; RESP 18
[2018-09-05 03:30] VITALS: BP 110/62; PULSE 62; RESP 19
[2018-09-05] MEDS: IBUPROFEN 600 MG TAB PO SCH ×3 (05:57→17:10)
[2018-09-05 08:15] VITALS: BP 105/57; PULSE 61; RESP 18
[2018-09-05] MEDS: SENNA/DOCUSATE NA (8.6MG/50MG) TAB PO SCH ×2 (08:19→21:00)
[2018-09-05 15:59] VITALS: BP 92/50; PULSE 68; RESP 18
--- NOTE | 2018-09-05 19:42 | PD.PPDC ---
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
[2018-09-05 19:45] VITALS: BP 127/63; PULSE 75; RESP 18
--- NOTE | 2018-09-05 19:46 | DS ---
Date/Time of Note Date/Time of Note DATE: 09/05/18 TIME: 19:44 Obstetrical Discharge Record Final Diagnosis Final Diagnosis: delivered Other Final Diagnosis PPROM at 35w5d Vaginal Delivery Obstetrical Delivery: Spontaneous Complications Induction: Yes Rupture of Membranes: Yes Condition on Discharge Physical Assessment Last Vitals: vss afebrile Voiding: Yes Bowel Movement: Yes Breast: Soft, non-tender Fundus: Firm Calf Tenderness: No Patient Condition: Stable IRCHARD SOTO MD Sep 05, 2018 19:46
[2018-09-06] MEDS: IBUPROFEN 600 MG TAB PO SCH ×3 (00:10→12:00)
[2018-09-06 03:50] VITALS: BP 103/65; PULSE 68; RESP 19
[2018-09-06 08:30] VITALS: BP 116/75; PULSE 68; RESP 18
[2018-09-06] MEDS ORDERED: DIPHTH/TET/ACEL PERTUSS (ADULT) 0.5 ML VIAL IM* ONE (09:00)
[2018-09-06] MEDS: SENNA/DOCUSATE NA (8.6MG/50MG) TAB PO SCH (09:48)
== END 2018-09-06 11:45 | disposition home or self-care (01) | DRG 807 ==
LOC: L-D 14:12 → PP1 09-04 03:11
PROVIDERS: ADMIT Obstetrics & Gynecology; ATTEND Obstetrics & Gynecology
PROC: 3E033VJ Introduction of Other Hormone into Peripheral Vein, Percutaneous Approach (ICD-10-PCS; 2018-09-03)
PROC: 10E0XZZ Delivery of Products of Conception, External Approach (ICD-10-PCS; principal; 2018-09-04)
DX: O42.913 Preterm premature rupture of membranes, unspecified as to length of time between rupture and onset of labor, third trimester (principal); Z37.0 Single live birth; Z3A.35 35 weeks gestation of pregnancy
CPT/HCPCS: 62322; 85025; 85610; 85730; 86592; 86850; 86870; 86885; 86900; 86901; 87340; 90715; 99464; J0290; J0456; J0702; J2590; J2790; J3010; J7050; J7120